=== PATIENT | male | born 1995 | race Caucasian/White ===

== ENCOUNTER 2020-04-04 15:08 | Emergency (ER) | payer BC ==
[2020-04-04] MEDS ORDERED: DEXAMETHASONE SOD PHOS INJ 10 MG/1 ML VIAL IM ONE (15:57)
[2020-04-04] MEDS ORDERED: DIPHENHYDRAMINE HCL 50 MG CAPSULE PO ONE (15:57)
[2020-04-04] MEDS ORDERED: FAMOTIDINE 20 MG TABLET PO ONE (15:58)
--- NOTE | 2020-04-04 16:00 | ER Document Report ---
ED General - General Chief Complaint: Bee Sting Stated Complaint: INSECT BITE/LIP SWELLING Time Seen by Provider: 04/04/20 15:57 Mode of Arrival: Ambulatory Information source: Patient Notes: This 24-year-old male presented to the emergency room today stating he was stung in the lip by a hornet. TRAVEL OUTSIDE OF THE [place] IN LAST 30 DAYS: Yes - HPI Onset: Just prior to arrival - Related Data Allergies/Adverse Reactions: No Known Allergies Allergy (Verified 04/04/20 15:52) Past Medical History - General Information source: Patient - Social History Smoking Status: Never Smoker Chew tobacco use (# tins/day): No Frequency of alcohol use: None Drug Abuse: None Family History: None Patient has homicidal ideation: No Review of Systems - Review of Systems Constitutional: No symptoms reported EENT: No symptoms reported Cardiovascular: No symptoms reported Respiratory: No symptoms reported Gastrointestinal: No symptoms reported Genitourinary: No symptoms reported Male Genitourinary: No symptoms reported Musculoskeletal: No symptoms reported Skin: No symptoms reported Hematologic/Lymphatic: No symptoms reported Neurological/Psychological: No symptoms reported Physical Exam - Vital signs Vitals: Temp Pulse Resp BP Pulse Ox 98.9 F 82 14 133/72 H 95 04/04/20 15:15 04/04/20 15:15 04/04/20 15:15 04/04/20 15:15 04/04/20 15:15 Interpretation: Normal - General General appearance: Appears well, Alert - HEENT Head: Normocephalic, Atraumatic Eyes: Normal Pupils: PERRL - Respiratory Respiratory status: No respiratory distress Chest status: Nontender Breath sounds: Normal Chest palpation: Normal - Cardiovascular Rhythm: Regular Heart sounds: Normal auscultation Murmur: No - Abdominal Inspection: Normal Distension: No distension Bowel sounds: Normal Tenderness: Nontender Organomegaly: No organomegaly - Back Back: Normal, Nontender - Extremities General upper extremity: Normal inspection, Nontender, Normal color, Normal ROM, Normal temperature General lower extremity: Normal inspection, Nontender, Normal color, Normal ROM, Normal temperature, Normal weight bearing. No: Abimbola's sign - Neurological Neuro grossly intact: Yes Cognition: Normal Orientation: AAOx4 [place] Coma Scale Eye Opening: Spontaneous Dany Coma Scale Verbal: Oriented Dany Coma Scale Motor: Obeys Commands [place] Coma Scale Total: 15 Speech: Normal Motor strength normal: LUE, RUE, LLE, RLE Sensory: Normal - Psychological Associated symptoms: Normal affect, Normal mood - Skin Skin Temperature: Warm Skin Moisture: Dry Skin Color: Normal Course - Re-evaluation Re-evalutation: 04/04/20 15:59 Difficulty breathing no difficulty swallowing no difficulty managing his own secretions no shortness of breath no exertional chest pain no exertional shortness of breath. 04/04/20 17:12 Formation is dissipated again no difficulty breathing swallowing or taking nourishment. - Vital Signs Vital signs: Temp Pulse Resp BP Pulse Ox 98.9 F 82 14 133/72 H 95 04/04/20 15:52 04/04/20 15:15 04/04/20 15:15 04/04/20 15:15 04/04/20 15:15 Discharge - Discharge Clinical Impression: Bee sting allergy Condition: Good Disposition: HOME, SELF-CARE Instructions: Insect Sting ([facility]) Prescriptions: Diphenhydramine HCl [Benadryl 25 mg Capsule] 50 mg PO Q6 PRN #25 capsule PRN Reason: Prednisone [Deltasone 20 mg Tablet] 3 tab PO DAILY 5 Days tablet Famotidine [Pepcid 20 mg Tablet] 20 mg PO DAILY #12 tablet
[2020-04-04 17:15] VITALS: BP 133/69
== END 2020-04-04 17:17 | disposition home or self-care (01) ==
LOC: ER 15:08
DX: T63.451A Toxic effect of venom of hornets, accidental (unintentional), initial encounter (principal); X58.XXXA Exposure to other specified factors, initial encounter
CPT/HCPCS: 99282; 96372; J1100